=== PATIENT | male | born 1980 | race Caucasian/White ===

== ENCOUNTER 2023-06-26 22:12 | Emergency (ER) | payer OTHER ==
[~2023-06-26] VITALS: Ht 160 cm; Wt 81.6 kg
[2023-06-26 22:35] VITALS: BP 127/75; PULSE 118; RESP 18; TEMP 99.5; O2SAT 96
[2023-06-26 23:27] LABS: FLU A ANTIGEN negative (NEGATIVE); FLU B ANTIGEN NEGATIVE (NEGATIVE)
[2023-06-26 23:52] VITALS: BP 127/75; TEMP 99.5
[2023-06-27] MEDS: ALBUTEROL SULFATE/IPRATROPIU 3 ML SOL IH ONE (00:04)
[2023-06-27] MEDS: ACETAMIN/CODEINE 120/12MG-5ML 5 ML UDC PO ONE (00:10)
[2023-06-27 00:16] VITALS: PULSE 113; RESP 21; O2SAT 96
[2023-06-27 00:54] VITALS: PULSE 97
[2023-06-27] MEDS ORDERED: ALBU0.0912 IH (01:15)
[2023-06-27] MEDS ORDERED: ROBAC PO (01:15)
[2023-06-27] MEDS ORDERED: AZIT250T4 PO (01:15)
[2023-06-27] MEDS ORDERED: NAPR-54 PO (01:15)
[2023-06-27 01:20] VITALS: RESP 16; O2SAT 99
== END 2023-06-27 01:20 | disposition home or self-care (01) ==
LOC: MED 22:12
DX: J20.9 Acute bronchitis, unspecified (principal); Z20.822 Contact with and (suspected) exposure to COVID-19; I10 Essential (primary) hypertension; Z79.899 Other long term (current) drug therapy
CPT/HCPCS: 71045; 87426; 87804; 93005; 94640; 99285; J7030